=== PATIENT | female | born 1985 | race African-American/Black ===

== ENCOUNTER → 2024-06-12 | Outpatient (CLI) | payer OTHER ==
[~2024-06-12] MED LIST: ALBU17AE27; FLUT1DIS3 IH; SALM50DI2 IH
== END | disposition home or self-care (01) ==
LOC: RADMN 11:40
PROVIDERS: ATTEND Family Medicine
DX: M54.9 Dorsalgia, unspecified (principal)
CPT/HCPCS: 72110